=== PATIENT | male | born 1960 | race Caucasian/White ===

== ENCOUNTER 2022-11-18 08:39 | Outpatient (CLI) | payer OTHER | END 2022-11-18 09:00 | disposition home or self-care (01) | LOC: MRI 08:39 | PROVIDERS: ATTEND Orthopaedic Surgery | DX: M25.561 Pain in right knee (principal) | CPT/HCPCS: 73721 ==

== ENCOUNTER 2023-03-28 15:16 | Inpatient (IN) | payer OTHER ==
[~2023-03-28] VITALS: Ht 177.8 cm; Wt 127.0 kg
[2023-04-04 11:59] LABS: HEMATOCRIT 47.9 % (39.0-48.0); HEMOGLOBIN 16.2 g/dL (13-16.00); MEAN CELL VOLUME 94.7 fL (80.0-100.00); MEAN CORPUSCULAR HGB CONC 33.7 g/dl (32.0-36.0); PLATELET COUNT 248 K/uL (150-450); RED BLOOD COUNT 5.06 M/uL (4.00-6.00); RED CELL DISTRIBUTION WIDTH 14.6 % (11.5-14.5)
[2023-04-04 11:59] LABS: URINE APPEARANCE Clear; URINE BILIRRUBIN Negative (NEGATIVE); URINE BLOOD Negative; URINE COLOR Yellow; URINE GLUCOSE Negative (NEGATIVE); URINE LEUKOCYTE Trace; URINE NITRATE Negative; URINE PROTEIN Negative (NEGATIVE); URINE UROBILINOGEN 0.2 E.U./dl
[2023-04-04 12:00] LABS: URINE BACTERIA 13.8 uL (0.0-1933); URINE EPITHELIAL CELLS 2.7 uL (0.0-38.8); URINE RBC 2.2 uL (0.0-20.8); URINE WBC 29.4 uL (0.0-23.2)
[2023-04-04 12:24] LABS: INR 0.99; PARTIAL THROMBOPLASTIN TIME 23.4 SECONDS (22.0-34.0); PROTHROMBIN TIME 10.4 SECONDS (9.0-11.5)
[2023-04-04 12:30] LABS: BILIRUBIN TOTAL 0.48 mg/dL (0.3-1.2); CALCIUM 10.5 mg/dL (8.5-10.1); CREATININE SERUM 2.1 mg/dL (0.70-1.30); GFR 32.38; GLOBULINA 4.7 G/DL (2.4-3.5); POTASSIUM 4.21 mEq/L (3.5-5.1); TOTAL PROTEIN 8.7 gm/dL (6.4-8.2)
[2023-04-04] MEDS ORDERED: METHO (13:09)
[2023-04-04] MEDS ORDERED: COZAAR25 MG PO (13:10)
[2023-04-04] MEDS ORDERED: LEVOTHY PO (13:10)
[2023-04-04] MEDS ORDERED: ALDACT PO (13:11)
[2023-04-04] MEDS ORDERED: [UNRECOGNIZED DRUG - OTHER] PO (13:11)
[2023-04-04] MEDS ORDERED: FLEXERIL PO (13:12)
[2023-04-04] MEDS ORDERED: ULORIC40 MG PO (13:12)
[2023-04-04] MEDS ORDERED: POTASSI PO (13:13)
[2023-04-09 08:20] LABS: HEMATOCRIT 43.1 % (39.0-48.0); HEMOGLOBIN 14.9 g/dL (13-16.00); MEAN CELL VOLUME 93.5 fL (80.0-100.00); MEAN CORPUSCULAR HEMOGLOBIN 32.3 pg (27.00-32.0); MEAN CORPUSCULAR HGB CONC 34.6 g/dl (32.0-36.0); PLATELET COUNT 225 K/uL (150-450); RED BLOOD COUNT 4.61 M/uL (4.00-6.00); RED CELL DISTRIBUTION WIDTH 14.6 % (11.5-14.5)
[2023-04-10 08:50] LABS: HEMATOCRIT 41.5 % (39.0-48.0); HEMOGLOBIN 14.2 g/dL (13-16.00); MEAN CELL VOLUME 94.3 fL (80.0-100.00); MEAN CORPUSCULAR HEMOGLOBIN 32.3 pg (27.00-32.0); MEAN CORPUSCULAR HGB CONC 34.3 g/dl (32.0-36.0); PLATELET COUNT 194 K/uL (150-450); RED CELL DISTRIBUTION WIDTH 14.3 % (11.5-14.5)
[2023-04-10] MEDS ORDERED: FAMOTIDINE20 MG (13:28)
[2023-04-10] MEDS ORDERED: LEVOTHYROXINE100 MCG (13:28)
[2023-04-10] MEDS ORDERED: COLCHICINE0.6 MG (13:28)
[2023-04-10] MEDS ORDERED: METHOTREXATE2.5 MG (13:28)
[2023-04-10] MEDS ORDERED: TADALAFIL20 MG (13:29)
[2023-04-10] MEDS ORDERED: GABAPENTIN300 M2 (13:29)
[2023-04-10] MEDS ORDERED: A/F PAIN RELIE500 MG (13:29)
[2023-04-10] MEDS ORDERED: FEXMID7.5 MG (13:32)
[2023-04-10] MEDS ORDERED: POTASSIUM99 M3 PO (13:33)
[2023-04-10] MEDS ORDERED: SPIRONOLACTONE25 MG (13:35)
== END 2023-04-10 18:29 | DRG 470 ==
LOC: SURH 04-08 06:17 → O/R 04-08 06:17 → SURG 04-08 07:15 → SURH 04-08 15:35
PROVIDERS: ADMIT Orthopaedic Surgery; ATTEND Orthopaedic Surgery
PROC: 0SRC0JZ Replacement of Right Knee Joint with Synthetic Substitute, Open Approach (ICD-10-PCS; principal; 2023-04-08 12:30)
DX: M17.11 Unilateral primary osteoarthritis, right knee (principal); D62 Acute posthemorrhagic anemia; M85.661 Other cyst of bone, right lower leg

== ENCOUNTER 2024-03-09 09:13 | Outpatient (CLI) | payer OTHER ==
[~2024-03-09 09:13] MED LIST: A/F PAIN RELIE500 MG; ALDACT PO; COLCHICINE0.6 MG; COZAAR25 MG PO; FAMOTIDINE20 MG; FEXMID7.5 MG; FLEXERIL PO; GABAPENTIN300 M2; LEVOTHY PO; LEVOTHYROXINE100 MCG; METHO; METHOTREXATE2.5 MG; POTASSI PO; POTASSIUM99 M3 PO; SPIRONOLACTONE25 MG; TADALAFIL20 MG; ULORIC40 MG PO; [UNRECOGNIZED DRUG - OTHER] PO
== END 2024-03-09 09:17 | disposition home or self-care (01) ==
LOC: SONOGRAMA 09:13
DX: N28.1 Cyst of kidney, acquired (principal); N40.0 Benign prostatic hyperplasia without lower urinary tract symptoms

== ENCOUNTER 2024-11-17 14:17 | Outpatient (CLI) | payer OTHER | END 2024-11-17 14:29 | disposition home or self-care (01) | LOC: TOM 14:17 | DX: K62.5 Hemorrhage of anus and rectum (principal) ==

== ENCOUNTER → 2025-01-04 07:09 | Outpatient (CLI) | payer OTHER | END | disposition home or self-care (01) | LOC: NUCLEAR 12-20 07:00 | DX: I20.9 Angina pectoris, unspecified (principal) | CPT/HCPCS: 78452; 93017; A9500; J0153 ==

== ENCOUNTER 2025-05-19 13:59 | Outpatient (CLI) | payer OTHER ==
[2025-05-19 15:47] LABS: BUN CREA RATIO 25.0 (7.0-25.0); CREATININE SERUM 2.09 mg/dL (0.70-1.30); GFR 32.23; GLUCOSE FASTING 96.0 mg/dL (65-100); OSMOLALITY SERUM 303.0 MOSM/KG (275-295)
== END 2025-05-19 14:03 | disposition home or self-care (01) ==
LOC: LAB 13:59
PROVIDERS: ATTEND Specialist
DX: N28.9 Disorder of kidney and ureter, unspecified (principal)